=== PATIENT | male | born 1970 | race Two or more races ===

== ENCOUNTER 2019-02-09 14:11 | Emergency (ER) | payer SELFPAY ==
[~2019-02-09] VITALS: Ht 175.3 cm; Wt 77.1 kg
[2019-02-09] MEDS ORDERED: SODIUM CHLORIDE 0.9% 1,000 ML IV ONE (14:24)
[2019-02-09] MEDS ORDERED: ceFAZolin 1GM/50ML 50 ML IV ONE (14:30)
[2019-02-09] MEDS ORDERED: ONDANSETRON HCL 4 MG/2 ML VIAL IV ONE (14:30)
[2019-02-09] MEDS ORDERED: HYDROmorphone HCL 2 MG/ML VL IV ONE (14:30)
[2019-02-09 15:19] LABS: Basophils # (auto) 0.1 uL; Basophils % (auto) 0.8 % (0.0-2.0); Eosinophils # (auto) 0.1 uL; Eosinophils % (auto) 1.5 % (0.0-7.0); Hematocrit 48.5 % (41.0-53.0); Hemoglobin 16.9 g/dL (13.5-17.5); Lymphocytes # (auto) 1.3 uL; Lymphocytes % (auto) 19.8 % (10.0-50.0); Mean Corpuscular Hemoglobin 31.8 pg (28.0-32.0); Mean Corpuscular Hgb Conc. 34.8 g/dL (32.0-36.0); Mean Corpuscular Volume 91.5 fL (80.0-100.0); Monocytes # (auto) 0.4 uL; Monocytes % (auto) 5.9 % (0.0-12.0); Neutrophils # (auto) 4.7 uL; Nucleated Red Blood Cells % 0.1 %; Platelet Count (auto) 161 10^3/uL (140-450); Red Cell Distribution Width 12.9 % (11.8-14.3); White Blood Cell 6.6 10^3/uL (4.4-10.8)
[2019-02-09] MEDS ORDERED: LIDOCAINE 1% (LOCAL ANESTH.) PF 5ml SDV ID ONE (15:30)
[2019-02-09 15:31] LABS: Calcium 8.5 mg/dL (8.5-10.1); Potassium 4.1 mmol/L (3.5-5.1)
[2019-02-09 15:37] LABS: Albumin 3.3 g/dL (3.4-5.0); BUN/Creatinine Ratio 17.8; Bilirubin, Total 1.5 mg/dL (0.2-1.0); Total Protein 6.7 g/dL (6.4-8.2)
[2019-02-09] MEDS ORDERED: LIDOCAINE W/ EPINEPHRINE 1% 20ML VIAL ONE (15:53)
[2019-02-09 16:20] VITALS: BP 125/83
[2019-02-09] MEDS ORDERED: InsuLIN REG 1unit/0.01ml Soln (100units/ml) IV ONE (17:15)
== END 2019-02-09 17:19 | disposition home or self-care (01) ==
LOC: ER 14:11
DX: S91.011A Laceration without foreign body, right ankle, initial encounter (principal); E11.9 Type 2 diabetes mellitus without complications; W54.0XXA Bitten by dog, initial encounter; Y93.89 Activity, other specified; Y99.8 Other external cause status; Y92.89 Other specified places as the place of occurrence of the external cause
CPT/HCPCS: 12002; 36415; 73600; 80053; 82962; 85025; 94761; 99284; J0690; J1170; J2405

== ENCOUNTER 2019-02-11 10:13 | Emergency (ER) | payer SELFPAY ==
[~2019-02-11] VITALS: Ht 175.3 cm; Wt 77.1 kg
[2019-02-11 10:39] VITALS: BP 139/81
== END 2019-02-11 11:18 | disposition home or self-care (01) ==
LOC: ER 10:20
DX: S91.119D Laceration without foreign body of unspecified toe without damage to nail, subsequent encounter (principal); E11.9 Type 2 diabetes mellitus without complications; Z88.0 Allergy status to penicillin; W54.0XXD Bitten by dog, subsequent encounter
CPT/HCPCS: 82962

== ENCOUNTER 2019-02-19 09:26 | Emergency (ER) | payer SELFPAY ==
[~2019-02-19] VITALS: Ht 175.3 cm; Wt 77.1 kg
[2019-02-19 09:47] VITALS: BP 134/84
== END 2019-02-19 11:33 | disposition home or self-care (01) ==
LOC: ER 09:31
DX: S81.811D Laceration without foreign body, right lower leg, subsequent encounter (principal); X58.XXXD Exposure to other specified factors, subsequent encounter